=== PATIENT | female | born 1965 | race Caucasian/White ===

== ENCOUNTER 2019-10-26 05:13 | Day surgery (SDC) | payer BC ==
[~2019-10-26] VITALS: Ht 162.6 cm; Wt 61.2 kg
--- NOTE | ~2019-10-26 | OP ---
PATIENT NAME: MORGAN SHIPMAN MEDICAL RECORD: [id number] :65 LOCATION:[facility] ADMISSION DATE: SURGEON: KATHERIN ROPER DPM DATE OF OPERATION: 10/26/2019 PREOPERATIVE DIAGNOSIS: Neuroma, left third interspace. POSTOPERATIVE DIAGNOSIS: Neuroma, left third interspace. PROCEDURE: Neurectomy, left third interspace. ANESTHESIA: General with local infiltrate utilizing lidocaine and Marcaine plain around the third interspace of the left foot; 10 cc total. HEMOSTASIS: Left ankle tourniquet at 250 mmHg. PREOPERATIVE DETAILS: The patient was taken to the OR and placed on the operating table in a supine position followed by induction of general anesthesia and infiltration of local anesthetic. The left extremity was then prepped and draped in the usual aseptic technique followed by exsanguination of extremity and inflation of tourniquet. A 15 blade was used to create a 3 cm linear incision over the left third interspace. Incision extended to the sulcus between the third and fourth toe. The incision was deepened down through subcutaneous tissue through the intermetatarsal ligament and the nerve was visible in the interspace. The nerve was isolated from surrounding soft tissue. The branches to the third and fourth toe were transected. Dissection was carried proximal to the floor of the foot where the nerve was also transected. The specimen was removed and sent to pathology for gross and micro identification. The wound was flushed. The subcutaneous tissue was reapproximated with 4-0 Rapide. The skin was closed with 4-0 Rapide in a subcuticular technique followed by Dermabond. Adaptic, 4 x 4, and Conform were used to dress the wound followed by an Tommy wrap. Tourniquet was deflated. POSTOPERATIVE DETAILS: The patient tolerated the procedure well and left the OR with vital signs stable and vascular status at preoperative levels. The patient was transported to recovery per anesthesia in stable condition. TRANSINT:[id number] Voice Confirmation ID: [id number] DOCUMENT ID: [id number] KATHERIN ROPER DPM CC: [id number] DICTATION DATE: 10/26/19 0742 TELECASTING ENGINEER: 10/26/191954 [facility] 10/26/19 [id number] [place] [address]
[~2019-10-26 05:13] MED LIST: LEXAPRO10 MG PO; TRAZODONE HCL150 MG PO; ZOCOR20 MG PO
[2019-10-26 06:05] LABS: HEMATOCRIT 41.7 % (36.0-48.0); HEMOGLOBIN 13.2 g/dL (12-16); MCH 27.8 pg (26.0-34.0); MCHC 31.7 g/dL (31.0-37.0); MEAN PLATELET VOLUME 9.9 fL (7.4-10.4); RBC 4.74 10x6/uL (4.00-5.40); RDW 15.8 % (11.5-14.5); WBC 8.4 10x3/uL (4.8-10.8)
[2019-10-26 06:30] VITALS: BP 112/74; Ht 162.6 cm; Wt 61.2 kg
== END 2019-10-26 09:48 | disposition home or self-care (01) ==
LOC: D.PAN 05:13 → D.OPS 07:00 → D.PAN 07:00
PROVIDERS: Anesthesiology; ATTEND Podiatrist
DX: G57.82 Other specified mononeuropathies of left lower limb (principal)